=== PATIENT | female | born 1945 | race African-American/Black ===

== ENCOUNTER 2021-02-10 18:59 | Emergency (ER) | payer BC ==
[~2021-02-10] VITALS: Ht 162.6 cm; Wt 91.0 kg
[2021-02-10] MEDS ORDERED: KETOROLAC 30MG/ML VIAL IV STA (20:19)
[2021-02-10] MEDS ORDERED: ONDANSETRON 4MG ODT PO STA (20:19)
[2021-02-10] MEDS ORDERED: SODIUM CHLORIDE 0.9% 500 ML IV ONE (20:30)
[2021-02-10 21:50] LABS: BASOPHILS % 0.3 % (0.0-2.0); EOSINOPHILS % 0.1 % (0.0-5.0); HEMATOCRIT. 36.4 % (36.0-48.0); HEMOGLOBIN. 11.5 g/dL (12.0-16.0); LYMPHOCYTES % 10.6 % (20.0-50.0); MEAN CORPUSCULAR HEMOGLOBIN 26.9 pg (28.0-32.0); MEAN CORPUSCULAR VOLUME 85.1 fL (81.0-99.0); MEAN PLATELET VOLUME 9.1 fl (7.4-10.4); MONOCYTES % 3.7 % (2.0-8.0); NEUTROPHILS % 85.3 % (40.0-76.0); PLATELET 305 x1000/uL (130-400); RED BLOOD CELL COUNT 4.28 mill/uL (4.2-5.4); RED CELL DISTRIBUTION WIDTH 18.5 % (11.6-14.6)
[2021-02-10 21:56] LABS: CHLORIDE 100 mEq/L (98-107)
[2021-02-10] MEDS ORDERED: MORPHINE SULFATE 4 MG/ML CPJ (NOT FOR IM USE) IV STA (21:56)
[2021-02-10] MEDS ORDERED: ONDANSETRON HCL 4MG/2ML INJ IV STA (21:56)
[2021-02-10] MEDS ORDERED: ONDA4TAB5 PO (22:40)
[2021-02-10 22:58] VITALS: BP 114/51
== END 2021-02-10 22:58 | disposition home or self-care (01) ==
LOC: ER 18:59
DX: R11.2 Nausea with vomiting, unspecified (principal); R06.02 Shortness of breath; Z87.01 Personal history of pneumonia (recurrent); Z99.81 Dependence on supplemental oxygen; Z88.2 Allergy status to sulfonamides
CPT/HCPCS: 36415; 71045; 80053; 83880; 84484; 85025; 96374; 96375; 99284; J2270; J2405; J7030

== ENCOUNTER 2022-02-06 13:13 | Inpatient (IN) | payer MEDICARE, BC ==
[~2022-02-06] VITALS: Ht 165.1 cm; Wt 72.3 kg
[~2022-02-06 13:13] MED LIST: ONDA4TAB5 PO
[2022-02-06 14:50] LABS: CHLORIDE 94 mEq/L (98-107)
[2022-02-06 15:01] LABS: BASOPHILS % 0.3 % (0.0-2.0); EOSINOPHILS % 0.8 % (0.0-5.0); HEMATOCRIT. 37.3 % (36.0-48.0); HEMOGLOBIN. 11.9 g/dL (12.0-16.0); LYMPHOCYTES % 8.9 % (20.0-50.0); MEAN CORPUSCULAR HEMOGLOBIN 25.5 pg (28.0-32.0); MEAN PLATELET VOLUME 9.4 fl (7.4-10.4); MONOCYTES % 7.4 % (2.0-8.0); NEUTROPHILS % 82.6 % (40.0-76.0); PLATELET 476 x1000/uL (130-400); RED BLOOD CELL COUNT 4.66 mill/uL (4.2-5.4); RED CELL DISTRIBUTION WIDTH 14.5 % (11.6-14.6)
[2022-02-06 15:03] LABS: CLARITY URINE CLEAR (CLEAR); COLOR URINE YELLOW (YELLOW); KETONES URINE TRACE (NEGATIVE); LEUKOCYTE ESTERASE URINE NEGATIVE (NEGATIVE); NITRITE URINE NEGATIVE (NEGATIVE); OCCULT BLOOD URINE NEGATIVE (NEGATIVE); PH URINE 6.5 (4.5-8.0); PROTEIN URINE 1+ (NEGATIVE); SPECIFIC GRAVITY URINE 1.025 (1.005-1.030)
[2022-02-06] MEDS ORDERED: POTASSIUM CHLORIDE 20MEQ TABLET SR PO ONE (15:30)
[2022-02-06] MEDS ORDERED: POTASSIUM CHLORIDE INJ 40 MEQ in DEXT 5% WATER 500 ML IV ONE (15:30)
[2022-02-06] MEDS ORDERED: SODIUM CHLORIDE 0.9% 1,000 ML IV ONE (15:30)
[2022-02-06] MEDS: SODIUM CHLORIDE 0.9% 1,000 ML IV SCH (17:00)
[2022-02-06] MEDS ORDERED: ACETAMINOPHEN 325MG TABLET PO PRN (17:00)
[2022-02-06] MEDS ORDERED: KETOROLAC 15MG/ML VIAL IV ONE (17:45)
[2022-02-07] MEDS: TRAMADOL 50MG TABLET PO PRN ×4 (00:10→18:16)
[2022-02-07] MEDS ORDERED: NALOXONE HCL 0.4MG/ML VIAL IV PRN (00:15)
[2022-02-07] MEDS: SODIUM CHLORIDE 0.9% 1,000 ML IV SCH ×2 (06:23→20:06)
[2022-02-07 07:20] LABS: HEMOGLOBIN. 11.1 g/dL (12.0-16.0); MEAN CORPUSCULAR HEMOGLOBIN 25.6 pg (28.0-32.0); MEAN CORPUSCULAR VOLUME 80.5 fL (81.0-99.0); MEAN PLATELET VOLUME 8.6 fl (7.4-10.4); PLATELET 404 x1000/uL (130-400); RED BLOOD CELL COUNT 4.35 mill/uL (4.2-5.4); RED CELL DISTRIBUTION WIDTH 14.8 % (11.6-14.6)
[2022-02-07 07:37] LABS: CHLORIDE 101 mEq/L (98-107)
[2022-02-07] MEDS ORDERED: CEFTRIAXONE 1 G PREMIX 50 ML IV SCH (08:00)
[2022-02-07] MEDS: POTASSIUM CHLORIDE 20MEQ TABLET SR PO SCH ×3 (10:07→12:51)
[2022-02-07 11:42] VITALS: BP 143/66
[2022-02-07 12:00] VITALS: BP 143/66
[2022-02-07] MEDS ORDERED: LISI-186 PO (12:05)
[2022-02-07] MEDS ORDERED: MORP100T6 PO (12:06)
[2022-02-07] MEDS ORDERED: HYDR-4001 MT (12:06)
[2022-02-07] MEDS ORDERED: POTASSIUM BICARB/CIT ACID 25 MEQ TABLET.EFF PO SCH (13:15)
[2022-02-07 13:17] LABS: PLATELET ESTIMATE NORMAL
[2022-02-07] MEDS ORDERED: POTASSIUM CHLORIDE 20MEQ/PACKET PO NR (13:30)
[2022-02-07] MEDS ORDERED: POTASSIUM CHLORIDE 20MEQ/PACKET PO SCH ×3 (14:00→20:00)
[2022-02-07] MEDS: ONDANSETRON HCL 4MG/2ML INJ IV PRN ×3 (14:47→20:05)
[2022-02-07] MEDS: ENOXAPARIN 80MG/0.8ML SYR SUBCUT SCH (15:42)
[2022-02-07 15:44] VITALS: BP 145/83
[2022-02-07 20:00] VITALS: BP 108/63
[2022-02-08] VITALS: BP 112/68
[2022-02-08] MEDS: TRAMADOL 50MG TABLET PO PRN ×4 (00:09→21:50)
[2022-02-08] MEDS: ENOXAPARIN 80MG/0.8ML SYR SUBCUT SCH ×2 (03:47→14:58)
[2022-02-08] MEDS: ONDANSETRON HCL 4MG/2ML INJ IV PRN (03:47)
[2022-02-08 04:00] VITALS: BP 151/69
[2022-02-08 08:00] VITALS: BP 149/68
[2022-02-08] MEDS: CEFTRIAXONE 1,000 MG in DEXTROSE 5% WATER 50 ML IV SCH (10:19)
[2022-02-08] MEDS: SODIUM CHLORIDE 0.9% 1,000 ML IV SCH ×2 (10:20→20:05)
[2022-02-08 12:00] VITALS: BP 131/80
[2022-02-08 13:19] LABS: CHLORIDE 102 mEq/L (98-107); HEMATOCRIT. 34.1 % (36.0-48.0); HEMOGLOBIN. 10.7 g/dL (12.0-16.0); MEAN CORPUSCULAR HEMOGLOBIN 25.1 pg (28.0-32.0); MEAN CORPUSCULAR VOLUME 80.1 fL (81.0-99.0); MEAN PLATELET VOLUME 8.8 fl (7.4-10.4); PLATELET 370 x1000/uL (130-400); RED BLOOD CELL COUNT 4.26 mill/uL (4.2-5.4); RED CELL DISTRIBUTION WIDTH 14.7 % (11.6-14.6)
[2022-02-08] MEDS ORDERED: POTASSIUM CHLORIDE 20MEQ TABLET SR PO NR (13:45)
[2022-02-08 14:07] LABS: PLATELET ESTIMATE NORMAL
[2022-02-08 16:00] VITALS: BP 144/77
[2022-02-08 20:00] VITALS: BP 129/51
[2022-02-09] VITALS (7 sets, daily range): BP systolic 143–154; BP diastolic 67–80
[2022-02-09] MEDS: ONDANSETRON HCL 4MG/2ML INJ IV PRN ×2 (01:36→14:42)
[2022-02-09] MEDS: TRAMADOL 50MG TABLET PO PRN ×3 (03:44→18:53)
[2022-02-09] MEDS: ENOXAPARIN 80MG/0.8ML SYR SUBCUT SCH ×2 (04:54→15:05)
[2022-02-09 06:56] LABS: INR 1.1; PROTHROMBIN TIME 11.4 sec (9.6-11.0)
[2022-02-09 07:04] LABS: CHLORIDE 105 mEq/L (98-107)
[2022-02-09] MEDS ORDERED: ASCORBIC ACID 250 MG TABLET PO SCH (09:00)
[2022-02-09] MEDS: CEFTRIAXONE 1,000 MG in DEXTROSE 5% WATER 50 ML IV SCH (10:04)
[2022-02-09] MEDS ORDERED: APIX5TAB MT (13:05)
[2022-02-09] MEDS: SODIUM CHLORIDE 0.9% 1,000 ML IV SCH (15:05)
== END 2022-02-09 20:28 | disposition home or self-care (01) | DRG 622 ==
LOC: ER 13:24 → MICUSO 15:58 → 8WST 02-07 11:27
PROVIDERS: ADMIT Internal Medicine; ATTEND Internal Medicine
PROC: 0JBR0ZZ Excision of Left Foot Subcutaneous Tissue and Fascia, Open Approach (ICD-10-PCS; principal; 2022-02-09)
PROC: 0JBQ0ZZ Excision of Right Foot Subcutaneous Tissue and Fascia, Open Approach (ICD-10-PCS; 2022-02-09)
DX: E87.6 Hypokalemia (principal); L89.623 Pressure ulcer of left heel, stage 3; L89.613 Pressure ulcer of right heel, stage 3; I82.412 Acute embolism and thrombosis of left femoral vein; E44.1 Mild protein-calorie malnutrition; E86.0 Dehydration; E87.1 Hypo-osmolality and hyponatremia; Z20.822 Contact with and (suspected) exposure to COVID-19; E87.8 Other disorders of electrolyte and fluid balance, not elsewhere classified; D64.9 Anemia, unspecified; Z68.26 Body mass index [BMI] 26.0-26.9, adult; Z88.2 Allergy status to sulfonamides; Z79.899 Other long term (current) drug therapy; Z86.73 Personal history of transient ischemic attack (TIA), and cerebral infarction without residual deficits; D72.829 Elevated white blood cell count, unspecified
CPT/HCPCS: 36415; 71045; 80048; 80053; 81003; 83605; 83735; 84145; 85025; 87426; 93005; 93970; 99291; J0696; J1650; J1885; J2405; J3480; J7030; J7060

== ENCOUNTER 2022-02-18 09:27 | Inpatient (IN) | payer MEDICARE, BC ==
[~2022-02-18] VITALS: Ht 167.6 cm; Wt 73.0 kg
[~2022-02-18 09:27] MED LIST changes: +APIX5TAB MT; +HYDR-4001 MT; +LISI-186 PO; +MORP100T6 PO
[2022-02-18] MEDS ORDERED: ONDANSETRON HCL 4MG/2ML INJ IV STA (09:42)
[2022-02-18] MEDS ORDERED: MORPHINE SULFATE 4 MG/ML CPJ (NOT FOR IM USE) IV STA (09:42)
[2022-02-18 10:35] LABS: BASOPHILS % 1.1 % (0.0-2.0); HEMATOCRIT. 30.5 % (36.0-48.0); HEMOGLOBIN. 9.6 g/dL (12.0-16.0); LYMPHOCYTES % 23.6 % (20.0-50.0); MEAN CORPUSCULAR HEMOGLOBIN 25.6 pg (28.0-32.0); MEAN CORPUSCULAR VOLUME 81.2 fL (81.0-99.0); MONOCYTES % 5.7 % (2.0-8.0); NEUTROPHILS % 67.6 % (40.0-76.0); PLATELET 423 x1000/uL (130-400); RED BLOOD CELL COUNT 3.76 mill/uL (4.2-5.4); RED CELL DISTRIBUTION WIDTH 14.8 % (11.6-14.6)
[2022-02-18 10:40] LABS: CHLORIDE 104 mEq/L (98-107)
[2022-02-18] MEDS ORDERED: SODIUM CHLORIDE 0.9% 500 ML IV ONE (11:00)
[2022-02-18] MEDS ORDERED: VANCOMYCIN 1G PREMIX 200 ML IV ONE (12:15)
[2022-02-18] MEDS ORDERED: PIPERACILLIN/TAZ 3.375G PREMIX 50 ML IV ONE (12:15)
[2022-02-18] MEDS ORDERED: ONDANSETRON HCL 4MG/2ML INJ IV PRN (14:30)
[2022-02-18] MEDS ORDERED: MAGNESIUM/ALUMINUM HYDROXIDE/SIMETHICONE 30ML UDC PO PRN (14:30)
[2022-02-18] MEDS ORDERED: GUAIFENESIN 200MG/10ML SUGAR FREE UDC PO PRN (14:30)
[2022-02-18] MEDS ORDERED: NA PHOS,M-B/NA PHOS,DI-BA ENEMA 118ML PR PRN (14:30)
[2022-02-18] MEDS ORDERED: DOCUSATE SODIUM 100MG CAPSULE PO PRN (14:30)
[2022-02-18] MEDS ORDERED: KCL 10MEQ/50ML PREMIX 50 ML IV NR (14:45)
[2022-02-18] MEDS: PANTOPRAZOLE SODIUM 40 MG/VIAL IV SCH (15:25)
[2022-02-18] MEDS: SODIUM CHLORIDE 0.9% 1,000 ML IV SCH ×2 (15:25→21:02)
[2022-02-18] MEDS: APIXABAN 5 MG TABLET PO SCH (17:56)
[2022-02-18 18:17] VITALS: BP 98/51
[2022-02-18 20:00] VITALS: BP 129/99
[2022-02-18] MEDS ORDERED: ZOLPIDEM TARTRATE 5MG TABLET PO PRN (20:15)
[2022-02-18] MEDS ORDERED: NALOXONE HCL 0.4MG/ML VIAL IV PRN (20:15)
[2022-02-18] MEDS: MORPHINE SULFATE 2 MG/ML CPJ (NOT FOR IM USE) IV PRN (21:02)
[2022-02-19] MEDS: MORPHINE SULFATE 2 MG/ML CPJ (NOT FOR IM USE) IV PRN ×2 (01:16→06:30)
[2022-02-19] MEDS: HYDROCODONE/ACETAMINOPHEN 5/325MG TABLET PO PRN ×4 (02:16→22:26)
[2022-02-19 04:00] VITALS: BP 149/80
[2022-02-19 08:00] VITALS: BP 125/64
[2022-02-19] MEDS: PANTOPRAZOLE SODIUM 40 MG/VIAL IV SCH ×3 (09:16→16:39)
[2022-02-19] MEDS: APIXABAN 5 MG TABLET PO SCH ×2 (09:16→16:32)
[2022-02-19] MEDS ORDERED: TRAM50TA3 PO (11:08)
[2022-02-19 12:00] VITALS: BP 105/63
[2022-02-19] MEDS: SODIUM CHLORIDE 0.9% 1,000 ML IV SCH (12:10)
[2022-02-19] MEDS ORDERED: METOCLOPRAMIDE HCL 10MG/2ML VIAL IV PRN (15:15)
[2022-02-19 16:00] VITALS: BP 108/59
[2022-02-19 16:35] LABS: CLARITY URINE CLEAR (CLEAR); COLOR URINE YELLOW (YELLOW); KETONES URINE NEGATIVE (NEGATIVE); LEUKOCYTE ESTERASE URINE TRACE (NEGATIVE); NITRITE URINE NEGATIVE (NEGATIVE); OCCULT BLOOD URINE NEGATIVE (NEGATIVE); PH URINE 5.5 (4.5-8.0); PROTEIN URINE NEGATIVE (NEGATIVE); SPECIFIC GRAVITY URINE 1.013 (1.005-1.030)
[2022-02-19] MEDS ORDERED: LORAZEPAM 1MG TABLET PO PRN (16:45)
[2022-02-19 16:46] LABS: BASOPHILS % 0.3 % (0.0-2.0); EOSINOPHILS % 1.5 % (0.0-5.0); HEMATOCRIT. 27.2 % (36.0-48.0); HEMOGLOBIN. 8.6 g/dL (12.0-16.0); LYMPHOCYTES % 7.2 % (20.0-50.0); MEAN CORPUSCULAR HEMOGLOBIN 25.5 pg (28.0-32.0); MEAN CORPUSCULAR VOLUME 80.6 fL (81.0-99.0); MEAN PLATELET VOLUME 8.6 fl (7.4-10.4); MONOCYTES % 3.6 % (2.0-8.0); NEUTROPHILS % 87.4 % (40.0-76.0); PLATELET 334 x1000/uL (130-400); RED BLOOD CELL COUNT 3.37 mill/uL (4.2-5.4)
[2022-02-19 16:54] LABS: INR 1.1; PROTHROMBIN TIME 11.7 sec (9.6-11.0)
[2022-02-19 16:57] LABS: CHLORIDE 102 mEq/L (98-107)
[2022-02-19 17:03] LABS: TOTAL IRON BINDING CAPACITY 294 ug/dL (250-450)
[2022-02-19 17:14] LABS: CARCINO EMBRYONIC ANTIGEN 2.4 ng/ml
[2022-02-19 17:26] LABS: FOLIC ACID (FOLATE) SERUM 4.3 ng/mL (>5.38)
[2022-02-19] MEDS: PANTOPRAZOLE 40MG DR TABLET PO SCH (17:46)
[2022-02-19 20:00] VITALS: BP 103/55
[2022-02-19] MEDS ORDERED: PANTOPRAZOLE SODIUM 40 MG/VIAL IV SCH (21:00)
[2022-02-20] VITALS: BP 103/55
[2022-02-20 04:00] VITALS: BP 113/56
[2022-02-20] MEDS: HYDROCODONE/ACETAMINOPHEN 5/325MG TABLET PO PRN ×2 (06:33→18:06)
[2022-02-20 08:00] VITALS: BP 109/64
[2022-02-20] MEDS: APIXABAN 5 MG TABLET PO SCH ×2 (09:12→17:52)
[2022-02-20] MEDS: PANTOPRAZOLE 40MG DR TABLET PO SCH ×2 (09:12→17:52)
[2022-02-20] MEDS ORDERED: FLUCONAZOLE 100MG TABLET PO SCH (11:00)
[2022-02-20 12:00] VITALS: BP 131/59
[2022-02-20 12:10] LABS: BASOPHILS % 0.6 % (0.0-2.0); HEMOGLOBIN. 8.3 g/dL (12.0-16.0); MEAN CORPUSCULAR VOLUME 80.8 fL (81.0-99.0); MEAN PLATELET VOLUME 8.8 fl (7.4-10.4); MONOCYTES % 6.6 % (2.0-8.0); NEUTROPHILS % 68.8 % (40.0-76.0); PLATELET 313 x1000/uL (130-400); RED BLOOD CELL COUNT 3.22 mill/uL (4.2-5.4); RED CELL DISTRIBUTION WIDTH 14.9 % (11.6-14.6)
[2022-02-20 12:27] LABS: CHLORIDE 104 mEq/L (98-107)
[2022-02-20] MEDS: HYDROCODONE/ACETAMINOPHEN 10/325MG TABLET PO PRN ×3 (12:51→20:34)
[2022-02-20 16:00] VITALS: BP 119/60
[2022-02-20 20:00] VITALS: BP 106/51
[2022-02-20] MEDS ORDERED: LISI10TA26 MT (20:20)
[2022-02-20] MEDS ORDERED: TRAZ-251 MT (20:24)
[2022-02-20] MEDS: ASCORBIC ACID 500 MG TABLET PO SCH (20:29)
[2022-02-21] VITALS: BP 113/59
[2022-02-21] MEDS: HYDROCODONE/ACETAMINOPHEN 10/325MG TABLET PO PRN ×2 (02:19→08:05)
[2022-02-21 04:00] VITALS: BP 115/62
[2022-02-21 08:00] VITALS: BP 104/67
[2022-02-21] MEDS: APIXABAN 5 MG TABLET PO SCH (08:04)
[2022-02-21] MEDS: ASCORBIC ACID 500 MG TABLET PO SCH (08:04)
[2022-02-21] MEDS: PANTOPRAZOLE 40MG DR TABLET PO SCH (08:06)
[2022-02-21] MEDS ORDERED: FOLIC ACID 1MG TABLET PO SCH (09:00)
[2022-02-21] MEDS ORDERED: FERROUS SULFATE 325MG TABLET PO SCH (09:00)
[2022-02-21 10:53] VITALS: BP 122/77
[2022-02-21 10:57] LABS: BASOPHILS % 1.2 % (0.0-2.0); HEMATOCRIT. 26.3 % (36.0-48.0); HEMOGLOBIN. 8.4 g/dL (12.0-16.0); LYMPHOCYTES % 24.5 % (20.0-50.0); MEAN CORPUSCULAR HEMOGLOBIN 26.1 pg (28.0-32.0); MEAN CORPUSCULAR VOLUME 82.2 fL (81.0-99.0); MEAN PLATELET VOLUME 8.5 fl (7.4-10.4); MONOCYTES % 8.5 % (2.0-8.0); NEUTROPHILS % 60.8 % (40.0-76.0); PLATELET 312 x1000/uL (130-400); RED BLOOD CELL COUNT 3.21 mill/uL (4.2-5.4); RED CELL DISTRIBUTION WIDTH 15.2 % (11.6-14.6)
[2022-02-21 11:02] LABS: CHLORIDE 105 mEq/L (98-107)
[2022-02-21 12:00] VITALS: BP 96/56
== END 2022-02-21 13:50 | disposition home or self-care (01) | DRG 393 ==
LOC: ER 09:40 → 6EST 12:35 → CANRESERV 13:34 → ENRESERV 13:34 → EDBEDREQSVC 14:46 → ENRESERV 15:23
PROVIDERS: ADMIT Hospitalist; ATTEND Hospitalist
DX: K42.9 Umbilical hernia without obstruction or gangrene (principal); E43 Unspecified severe protein-calorie malnutrition; L89.623 Pressure ulcer of left heel, stage 3; L89.613 Pressure ulcer of right heel, stage 3; J98.11 Atelectasis; B37.49 Other urogenital candidiasis; E11.9 Type 2 diabetes mellitus without complications; I25.10 Atherosclerotic heart disease of native coronary artery without angina pectoris; J44.9 Chronic obstructive pulmonary disease, unspecified; M16.12 Unilateral primary osteoarthritis, left hip; D50.9 Iron deficiency anemia, unspecified; E53.8 Deficiency of other specified B group vitamins; Z20.822 Contact with and (suspected) exposure to COVID-19; I10 Essential (primary) hypertension; I95.9 Hypotension, unspecified; G40.909 Epilepsy, unspecified, not intractable, without status epilepticus; R10.9 Unspecified abdominal pain; Z82.49 Family history of ischemic heart disease and other diseases of the circulatory system; Z86.73 Personal history of transient ischemic attack (TIA), and cerebral infarction without residual deficits; Z86.718 Personal history of other venous thrombosis and embolism; Z90.710 Acquired absence of both cervix and uterus; Z90.49 Acquired absence of other specified parts of digestive tract; Z68.26 Body mass index [BMI] 26.0-26.9, adult
CPT/HCPCS: 36415; 71045; 74176; 80048; 80053; 81003; 82270; 82378; 82607; 82728; 82746; 82962; 83540; 83550; 83605; 85025; 85044; 87426; 93005; 93970; 99285; C9113; J2270; J2405; J2543; J2765; J3370; J3480; J7030

== ENCOUNTER 2022-04-13 11:02 | Emergency (ER) | payer MEDICARE, BC ==
[~2022-04-13] VITALS: Ht 167.6 cm; Wt 75.0 kg
[~2022-04-13 11:02] MED LIST changes: -LISI-186 PO; +LISI10TA26 MT; +TRAZ-251 MT
[2022-04-13] MEDS ORDERED: HYDROCODONE/ACETAMINOPHEN 5/325MG TABLET PO ONE (11:15)
[2022-04-13 12:17] LABS: CHLORIDE 108 mEq/L (98-107)
[2022-04-13 12:21] LABS: BASOPHILS % 1.3 % (0.0-2.0); HEMATOCRIT. 36.6 % (36.0-48.0); HEMOGLOBIN. 11.6 g/dL (12.0-16.0); LYMPHOCYTES % 34.9 % (20.0-50.0); MEAN CORPUSCULAR HEMOGLOBIN 26.9 pg (28.0-32.0); MEAN CORPUSCULAR VOLUME 84.6 fL (81.0-99.0); MEAN PLATELET VOLUME 9.5 fl (7.4-10.4); NEUTROPHILS % 53.8 % (40.0-76.0); PLATELET 348 x1000/uL (130-400); RED BLOOD CELL COUNT 4.33 mill/uL (4.2-5.4); RED CELL DISTRIBUTION WIDTH 15.6 % (11.6-14.6)
[2022-04-13 12:22] LABS: D-DIMER 0.35 mg/L FEU (<0.50); PARTIAL THROMBOPLASTIN TIME 26.1 sec (23.4-31.0)
[2022-04-13] MEDS ORDERED: APIXABAN 5 MG TABLET PO STA (15:02)
[2022-04-13] MEDS ORDERED: HYDR-4001 MT ×2 (15:50→16:23)
[2022-04-13] MEDS ORDERED: APIX5TAB MT ×2 (15:50→16:23)
[2022-04-13] MEDS ORDERED: APIXABAN 5 MG TABLET PO NR (16:00)
[2022-04-13 18:17] VITALS: BP 131/67
== END 2022-04-13 18:26 | disposition home or self-care (01) ==
LOC: ER 11:02
DX: I82.512 Chronic embolism and thrombosis of left femoral vein (principal); I10 Essential (primary) hypertension; J44.9 Chronic obstructive pulmonary disease, unspecified; E11.9 Type 2 diabetes mellitus without complications; G40.909 Epilepsy, unspecified, not intractable, without status epilepticus; Z86.73 Personal history of transient ischemic attack (TIA), and cerebral infarction without residual deficits; Z79.01 Long term (current) use of anticoagulants; Z88.6 Allergy status to analgesic agent; Z88.2 Allergy status to sulfonamides
CPT/HCPCS: 36415; 71045; 80053; 83880; 85025; 85379; 93005; 93970; 99285

== ENCOUNTER 2022-06-03 21:35 | Emergency (ER) | payer BC, MEDICARE ==
[~2022-06-03] VITALS: Ht 167.6 cm; Wt 57.0 kg
[2022-06-04 00:22] LABS: BASOPHILS % 0.8 % (0.0-2.0); EOSINOPHILS % 2.4 % (0.0-5.0); HEMATOCRIT. 35.7 % (36.0-48.0); HEMOGLOBIN. 11.5 g/dL (12.0-16.0); LYMPHOCYTES % 32.7 % (20.0-50.0); MEAN CORPUSCULAR HEMOGLOBIN 26.8 pg (28.0-32.0); MEAN CORPUSCULAR VOLUME 82.8 fL (81.0-99.0); MEAN PLATELET VOLUME 8.1 fl (7.4-10.4); MONOCYTES % 7.4 % (2.0-8.0); NEUTROPHILS % 56.7 % (40.0-76.0); PLATELET 419 x1000/uL (130-400); RED BLOOD CELL COUNT 4.31 mill/uL (4.2-5.4); RED CELL DISTRIBUTION WIDTH 15.1 % (11.6-14.6)
[2022-06-04 00:31] LABS: CHLORIDE 105 mEq/L (98-107)
[2022-06-04] MEDS ORDERED: POTASSIUM CHLORIDE 20MEQ TABLET SR PO NR (00:45)
[2022-06-04] MEDS ORDERED: ACETAMINOPHEN 500MG TABLET PO NR (01:30)
[2022-06-04 01:50] LABS: CLARITY URINE CLOUDY (CLEAR); COLOR URINE YELLOW (YELLOW); KETONES URINE 1+ (NEGATIVE); LEUKOCYTE ESTERASE URINE 3+ (NEGATIVE); NITRITE URINE POSITIVE (NEGATIVE); OCCULT BLOOD URINE 2+ (NEGATIVE); PH URINE 5.5 (4.5-8.0); PROTEIN URINE TRACE (NEGATIVE); SPECIFIC GRAVITY URINE 1.012 (1.005-1.030); UROBILINOGEN URINE 0.2 E.U./dL (0.2-1.0)
[2022-06-04] MEDS ORDERED: CEPHALEXIN 250MG CAPSULE PO NR (02:15)
[2022-06-04] MEDS ORDERED: PHENAZOPYRIDINE HCL 100MG TABLET PO NR (02:15)
[2022-06-04 03:14] LABS: INR 1.1; PARTIAL THROMBOPLASTIN TIME 31.9 sec (23.4-31.0); PROTHROMBIN TIME 11.9 sec (9.6-11.0)
[2022-06-04] MEDS ORDERED: CEPH500C2 MT (04:52)
[2022-06-04 11:20] VITALS: BP 123/80
[2022-06-04] MEDS ORDERED: ACETAMINOPHEN 325MG TABLET PO ONE (11:30)
== END 2022-06-04 12:13 | disposition home or self-care (01) ==
LOC: ER 21:35
DX: M79.7 Fibromyalgia (principal); N39.0 Urinary tract infection, site not specified; R53.1 Weakness; G89.29 Other chronic pain; M79.604 Pain in right leg; Z76.5 Malingerer [conscious simulation]; Z86.718 Personal history of other venous thrombosis and embolism; Z79.01 Long term (current) use of anticoagulants
CPT/HCPCS: 36415; 71045; 80053; 81003; 83880; 84484; 85025; 93970; 99285